=== PATIENT | male | born 1990 | race Caucasian/White ===

== ENCOUNTER 2024-04-13 11:20 | Emergency (ER) | payer SELFPAY ==
[~2024-04-13] VITALS: Ht 175.3 cm; Wt 96.4 kg
[2024-04-13 11:22] VITALS: TEMP 98.6
[2024-04-13 12:38] VITALS: BP 143/99; O2SAT 100
[2024-04-13] MEDS: PERCOCET 5MG/325MG TAB PO ONE (12:43)
[2024-04-13] MEDS ORDERED: PERC5TAB12 PO ×2 (13:06→13:30)
== END 2024-04-13 13:22 | disposition home or self-care (01) ==
LOC: M ED 11:20
DX: S82.445A Nondisplaced spiral fracture of shaft of left fibula, initial encounter for closed fracture (principal); Y92.019 Unspecified place in single-family (private) house as the place of occurrence of the external cause; Y93.9 Activity, unspecified; Y99.9 Unspecified external cause status; R22.42 Localized swelling, mass and lump, left lower limb; F10.10 Alcohol abuse, uncomplicated; Z79.899 Other long term (current) drug therapy

== ENCOUNTER → 2024-04-22 | Outpatient (CLI) | payer SELFPAY ==
[~2024-04-22] MED LIST: PERC5TAB12 PO
== END ==
LOC: M SOG 07:58
PROVIDERS: ATTEND Physician Assistant
DX: S82.445A Nondisplaced spiral fracture of shaft of left fibula, initial encounter for closed fracture (principal); W18.30XA Fall on same level, unspecified, initial encounter; Y92.009 Unspecified place in unspecified non-institutional (private) residence as the place of occurrence of the external cause